=== PATIENT | female | born 1965 | race Caucasian/White ===

== ENCOUNTER 2018-03-15 19:27 | Emergency (ER) | payer OTHER ==
[~2018-03-15] VITALS: Ht 162.6 cm; Wt 95.3 kg
[~2018-03-15 19:27] MED LIST: ASPIRIN81 M2; BACTRIM; CHOLESTEROL MA1 EACH; GLUCOPHAGE1000 MG; GLUCOTROL5 MG PO; HYDROCODONE-AP1 EAC6 PO; IBUPROFEN 800800 M1; LISINOPRIL40 MG; MOBIC7.5 M1 PO; NAPROSYN375 MG PO; NAPROSYN500 MG PO; NORCO 5-325 TA1 EACH PO; PERCOCET 5-3251 EACH PO; ROBAXIN 750 MG750 M1 PO; VICODIN; XANAX 0.25 MG0.25 MG PO; ZOFRAN 4 MG ORAL4 MG PO; [UNRECOGNIZED DRUG - REMARK]
[2018-03-15] MEDS ORDERED: COZAAR 25 MG TA25 M2 (19:46)
[2018-03-15] MEDS ORDERED: NEURONTIN 300300 M1 (19:46)
[2018-03-15] MEDS ORDERED: ACETAMINOPHEN-1 EAC1 PO (20:10)
[2018-03-15] MEDS ORDERED: AMOXICILLIN 50500 MG PO (20:10)
[2018-03-15] MEDS ORDERED: LIDOCAINE VISC100 ML SWISH&SPIT (20:10)
[2018-03-15 20:24] VITALS: BP 170/71
== END 2018-03-15 20:25 | disposition home or self-care (01) ==
LOC: M.ERS 19:27
DX: K08.89 Other specified disorders of teeth and supporting structures (principal); M19.90 Unspecified osteoarthritis, unspecified site; F17.210 Nicotine dependence, cigarettes, uncomplicated; Z91.040 Latex allergy status; Z88.8 Allergy status to other drugs, medicaments and biological substances

== ENCOUNTER 2018-11-29 13:29 | Emergency (ER) | payer OTHER ==
[~2018-11-29] VITALS: Ht 162.6 cm; Wt 94.8 kg
[~2018-11-29 13:29] MED LIST changes: +ACETAMINOPHEN-1 EAC1 PO; +AMOXICILLIN 50500 MG PO; +COZAAR 25 MG TA25 M2; +LIDOCAINE VISC100 ML SWISH&SPIT; +NEURONTIN 300300 M1
[2018-11-29] MEDS ORDERED: CRESTOR10 MG PO (13:47)
[2018-11-29] MEDS ORDERED: AMITRIPTYLINE H25 M2 PO (13:47)
[2018-11-29] MEDS ORDERED: COZAAR100 MG PO (13:47)
[2018-11-29] MEDS ORDERED: CALCIUM 600 +1 EAC1 PO (13:47)
[2018-11-29] MEDS ORDERED: OZEMPIC0.25 MG/0. SUBQ (13:48)
[2018-11-29] MEDS ORDERED: FARXIGA5 MG PO (13:48)
[2018-11-29] MEDS ORDERED: B12INJ IM (13:48)
[2018-11-29] MEDS ORDERED: VITAMIN B-12500 MCG PO (13:49)
[2018-11-29 13:57] LABS: ABSOLUTE BASOPHILS 0.1 thou/uL (0.0-0.2); ABSOLUTE EOSINOPHILS 0.2 thou/uL (0.0-0.7); ABSOLUTE LYMPHOCYTES 4.3 thou/uL (0.8-5.3); ABSOLUTE MONOCYTES 0.9 thou/uL (0.0-1.2); ABSOLUTE NEUTROPHILS 7.3 thou/uL (1.6-8.1); BASOPHILS 0.7 %; EOSINOPHILS 1.6 %; HEMATOCRIT 43.3 % (37.0-47.0); HEMOGLOBIN 14.9 gm/dL (12.0-15.0); LYMPHOCYTES 33.6 %; MCH 30.4 pg (26.0-34.0); MCHC 34.4 g/dL (28.0-37.0); MCV 88.5 fL (80.0-100.0); MONOCYTES 6.9 %; MPV 8.6 fl. (7.2-11.1); NUCLEATED RBCS 0 /100WBC; PLATELET COUNT* 290 thou/uL (150-400); POLYS 57.2 %; RBC 4.89 mil/uL (4.20-5.00); RDW-CV 15.4 % (10.5-14.5); WBC 12.7 thou/uL (4.0-11.0)
[2018-11-29 14:03] LABS: CALCIUM 9.3 mg/dL (8.5-10.1); CREATININE 0.7 mg/dL (0.6-1.3); POTASSIUM 3.8 mmol/L (3.5-5.1)
[2018-11-29 14:12] LABS: ALBUMIN 3.5 g/dL (3.4-5.0); TOTAL BILIRUBIN 0.7 mg/dL (<0.1-1.0); TOTAL PROTEIN 7.2 g/dL (6.4-8.2)
[2018-11-29 14:49] LABS: URINE BILIRUBIN NEGATIVE (Negative); URINE BLOOD TRACE (Negative); URINE CLARITY CLEAR; URINE COLOR YELLOW; URINE GLUCOSE-RANDOM 3+ (Negative); URINE KETONES NEGATIVE (Negative); URINE LEUKOCYTES-REFLEX NEGATIVE (Negative); URINE NITRITE-REFLEX NEGATIVE (Negative); URINE PROTEIN NEGATIVE (Negative); URINE SPECIFIC GRAVITY <= 1.005 (1.005-1.030); URINE UROBILINOGEN 0.2 E.U./dl (0.2-1.0)
[2018-11-29 14:56] LABS: AMP/METHAMP Negative (Negative); BARBITURATES Negative (Negative); BENZODIAZEPINES Negative (Negative); COCAINE Negative (Negative); METHADONE Negative (Negative); OPIATES Negative (Negative); PCP Negative (Negative); THC Negative (Negative)
[2018-11-29 15:42] VITALS: BP 136/79
--- NOTE | 2018-11-30 11:14 | EKG ---
[place] [address] ELECTROCARDIOGRAM REPORT Name: JAY ABRAHAM [id number] Admission: 11/29/18 Attend Phys: Discharge: 11/29/18 Date of : 61 Report #: [id number] THIS REPORT FOR: //name// [facility] ED Test Date: 2018-11-29 Test Time: 13:41:48 Pat Name: JAY MONTESINOSTISON Department: Room: Gender: F Data Processor: TONY : 1965 Requested By: Chika Nobles Order Number: [id number] Bairon MD: Jac Ugalde Measurements Intervals [place] Rate: 94 P: -32 HI: 139 QRS: 13 QRSD: 85 T: 29 QT: 367 QTc: 459 Interpretive Statements Sinus rhythm Low voltage, precordial leads No previous ECG available for comparison Electronically Signed On 11-30-2018 11:14:44 CDT by Jac Ugalde [email or web address] <ELECTRONICALLY SIGNED> By: Jac Ugalde MD, [facility] 11/30/18 1114 1341 1341 Jac Ugalde MD, FACC /EPI
== END 2018-11-29 15:42 | disposition home or self-care (01) ==
LOC: M.ERS 13:29
PROVIDERS: Personal Emergency Response Attendant
DX: S80.211A Abrasion, right knee, initial encounter (principal); R55 Syncope and collapse; M54.2 Cervicalgia; M19.90 Unspecified osteoarthritis, unspecified site; E11.9 Type 2 diabetes mellitus without complications; E78.00 Pure hypercholesterolemia, unspecified; Z91.040 Latex allergy status; F17.210 Nicotine dependence, cigarettes, uncomplicated; Z88.8 Allergy status to other drugs, medicaments and biological substances; Z98.890 Other specified postprocedural states; Z90.710 Acquired absence of both cervix and uterus; Z85.42 Personal history of malignant neoplasm of other parts of uterus; W22.8XXA Striking against or struck by other objects, initial encounter; Y93.89 Activity, other specified; Y92.89 Other specified places as the place of occurrence of the external cause; Y99.8 Other external cause status